=== PATIENT | male | born 1970 | race Hispanic/Latino ===

== ENCOUNTER 2022-03-14 14:39 | Inpatient (IN) | payer OTHER ==
[2022-03-14] VITALS (7 sets, daily range): BP systolic 99–118; BP diastolic 60–77
[~2022-03-14] VITALS: Ht 170.2 cm; Wt 59.9 kg
[2022-03-14 15:19] LABS: BASOPHILS % (AUTO) 0.4 % (0.0-5.0); EOSINOPHILS % (AUTO) 1.6 % (0.0-8.0); HEMATOCRIT 42.3 % (42-54); LYMPHOCYTES % (AUTO) 4.6 % (21.0-51.0); MEAN CORPUSCULAR HEMOGLOBIN 30.1 pg (27.0-33.0); MEAN CORPUSCULAR HGB CONC 33.1 g/dL (32.0-36.0); MONOCYTES % (AUTO) 7.9 % (3.0-13.0); NEUTROPHILS % (AUTO) 73.9 % (40.0-77.0); PLATELET COUNT (AUTO) 139 K/uL (130-400); RED BLOOD CELL COUNT(AUTO) 4.65 MIL/uL (4.50-6.20)
[2022-03-14] MEDS ORDERED: 0.9%NACL 1000ML 1,000 ML IV ONE ×2 (15:30→17:00)
[2022-03-14 15:33] LABS: ABG BASE EXCESS -17.7 mmol/L (-2.0-3.0); ABG HCO3 7.2 mmol/L (21.0-28.0); ABG OXYGEN SATURATION 97.8 % (95.0-99.0); ABG PCO2 17 mmHg (35-48)
[2022-03-14 15:50] LABS: ALBUMIN 2.3 g/dL (3.5-5.0); CREATININE 1.5 mg/dL (0.5-1.5); POTASSIUM 3.7 mmol/L (3.5-5.1); TOTAL PROTEIN, SERUM 7.2 g/dL (6.0-8.3)
[2022-03-14 16:00] LABS: MAGNESIUM 2.7 mg/dL (1.80-2.40)
[2022-03-14] MEDS ORDERED: GLYB3TAB PO (16:05)
[2022-03-14 16:17] LABS: APPEARANCE,URINE Clear (CLEAR); BILIRUBIN,URINE Negative (NEGATIVE); COLOR,URINE Yellow (YELLOW); GLUCOSE, URINE (UA) >=1000 mg/dL (NEGATIVE); KETONES,URINE >=160 mg/dL (NEGATIVE); LEUKOCYTE ESTERASE ,URINE Negative (NEGATIVE); NITRATE,URINE Negative (NEGATIVE); OCCULT BLOOD,URINE Large (NEGATIVE); PROTEIN,URINE POS 1+ mg/dL (NEGATIVE); UROBILINOGEN,URINE 0.2 mg/dL (0.2-1.0)
[2022-03-14] MEDS ORDERED: INSULIN HUMULIN R 100 UNIT/ML 3ML IV SCH (16:30)
[2022-03-14 16:33] LABS: BACTERIA,URINE Few /HPF (None Seen); SQUAMOUS EPITHELIAL CELL,UR Rare /HPF (0-2)
[2022-03-14 16:34] LABS: HYALINE CASTS, URINE 0-1 /LPF (0-1 /LPF)
[2022-03-14] MEDS ORDERED: INSULIN REGULAR, HUMAN 3ML 100 UNIT in 0.9%NACL 100ML 99 ML IV PRN ×2 (17:00)
[2022-03-14] MEDS: 0.9%NACL 1000ML 1,000 ML IV SCH ×3 (17:25→23:30)
[2022-03-14] MEDS ORDERED: CLOPIDOGREL 300MG TAB PO ONE (18:30)
[2022-03-14] MEDS ORDERED: 0.9%NACL 1000ML 1,000 ML IV SCH (18:30)
[2022-03-14] MEDS ORDERED: ASPIRIN 325MG TAB PO ONE (18:30)
[2022-03-14] MEDS ORDERED: HEPARIN 25,000 UNITS/250ML D5W 250 ML IV SCH (18:30)
[2022-03-14] MEDS ORDERED: ONDANSETRON 4MG INJ IV PRN (18:30)
[2022-03-14] MEDS ORDERED: ACETAMINOPHEN 325 MG TAB PO PRN (18:30)
[2022-03-14 19:18] LABS: APPEARANCE,URINE Clear (CLEAR); BILIRUBIN,URINE Negative (NEGATIVE); COLOR,URINE Yellow (YELLOW); GLUCOSE, URINE (UA) >=1000 mg/dL (NEGATIVE); KETONES,URINE >=160 mg/dL (NEGATIVE); LEUKOCYTE ESTERASE ,URINE Negative (NEGATIVE); NITRATE,URINE Negative (NEGATIVE); OCCULT BLOOD,URINE Large (NEGATIVE); PROTEIN,URINE POS 1+ mg/dL (NEGATIVE); UROBILINOGEN,URINE 0.2 mg/dL (0.2-1.0)
[2022-03-14 19:22] LABS: PROTEIN,URINE RANDOM 60.5 mg/dL (0-11.9)
[2022-03-14 19:40] LABS: BACTERIA,URINE Few /HPF (None Seen)
[2022-03-14 19:41] LABS: HYALINE CASTS, URINE 0-1 /LPF (0-1 /LPF); SQUAMOUS EPITHELIAL CELL,UR Rare /HPF (0-2)
[2022-03-14 19:55] LABS: INR 1.07 (0.85-1.15); PROTHROMBIN TIME 11.6 SEC (9.6-11.6)
[2022-03-14 19:57] LABS: PARTIAL THROMBOPLASTIN TIME 35.9 SEC (26.3-35.5)
[2022-03-14] MEDS: DEXTROSE 5 %-0.45 % NACL 1,000 ML IV PRN (20:01)
[2022-03-14 20:05] LABS: CREATININE 1.3 mg/dL (0.5-1.5); MAGNESIUM 2.4 mg/dL (1.80-2.40)
[2022-03-14 20:12] LABS: POTASSIUM 2.8 mmol/L (3.5-5.1)
[2022-03-14 20:19] LABS: THYROID STIMULATING HORMONE 0.6 uIU/mL (0.36-3.74)
[2022-03-14] MEDS ORDERED: HEPARIN 5,000 UNIT VIAL ONE (20:20)
[2022-03-14 20:46] LABS: CRP QUANTITATIVE 356.7 mg/L (0.00-9.0)
[2022-03-14] MEDS ORDERED: MAGNESIUM 2GM PREMIX 50ML 50 ML IV PRN (21:30)
[2022-03-14 21:56] LABS: ABG BASE EXCESS -13.3 mmol/L (-2.0-3.0); ABG HCO3 10.8 mmol/L (21.0-28.0); ABG OXYGEN SATURATION 97.2 % (95.0-99.0); ABG PCO2 22 mmHg (35-48)
[2022-03-14 21:56] LABS: AMPHET/METH SCREEN,URINE NEGATIVE (NEGATIVE); BARBITURATE SCREEN, URINE NEGATIVE (NEGATIVE); BENZODIAZEPINES SCREEN,URINE NEGATIVE (NEGATIVE); CANNABINOID SCREEN,URINE NEGATIVE (NEGATIVE); COCAINE SCREEN,URINE NEGATIVE (NEGATIVE); OPIATE SCREEN,URINE NEGATIVE (NEGATIVE); PHENCYCLIDINE SCREEN,URINE NEGATIVE (NEGATIVE)
[2022-03-14] MEDS: PANTOPRAZOLE 40 MG/VIAL IVP SCH (21:58)
[2022-03-14] MEDS: METOPROLOL TARTRATE 25 MG TAB PO SCH (21:58)
[2022-03-14] MEDS: POTASSIUM CHLORIDE 10MEQ/100ML 100 ML IV PRN ×2 (22:05→23:05)
[2022-03-14 22:14] LABS: ABG OXYGEN SATURATION 47.2 % (95.0-99.0); BASE EXCESS,VENOUS BLOOD GAS -14.9 (-2.0-3.0); HCO3,VENOUS BLOOD GAS 10.9 (21.0-28.0); PCO2,VENOUS BLOOD GAS 26 (35-48); PH,VENOUS BLOOD GAS 7.235 (7.350-7.450)
[2022-03-14] MEDS ORDERED: RENAL DOSE IV PRN (22:30)
[2022-03-14] MEDS: ZOSYN 3.375GM +NS 50ML IV SCH (22:30)
[2022-03-15] VITALS (30 sets, daily range): BP systolic 89–151; BP diastolic 54–91
[2022-03-15] MEDS: 0.9%NACL 1000ML 1,000 ML IV SCH ×8 (00:10→20:34)
[2022-03-15 01:19] LABS: BASOPHILS % (AUTO) 0.5 % (0.0-5.0); EOSINOPHILS % (AUTO) 1.7 % (0.0-8.0); HEMATOCRIT 37.7 % (42-54); LYMPHOCYTES % (AUTO) 5.8 % (21.0-51.0); MEAN CORPUSCULAR HEMOGLOBIN 30.3 pg (27.0-33.0); MEAN CORPUSCULAR HGB CONC 34.5 g/dL (32.0-36.0); MEAN CORPUSCULAR VOLUME 87.9 fL (79-99); MONOCYTES % (AUTO) 5.7 % (3.0-13.0); NEUTROPHILS % (AUTO) 80.2 % (40.0-77.0); PLATELET COUNT (AUTO) 97 K/uL (130-400); RED BLOOD CELL COUNT(AUTO) 4.29 MIL/uL (4.50-6.20); RED CELL DISTRIBUTION WIDTH 12.9 % (11.0-15.5); WHITE BLOOD COUNT (AUTO) 14.3 K/uL (4.8-10.8)
[2022-03-15 01:34] LABS: INR 1.03 (0.85-1.15); PROTHROMBIN TIME 11.2 SEC (9.6-11.6)
[2022-03-15 01:35] LABS: PARTIAL THROMBOPLASTIN TIME 88.8 SEC (26.3-35.5)
[2022-03-15 01:57] LABS: CREATININE 1.1 mg/dL (0.5-1.5); MAGNESIUM 2.1 mg/dL (1.80-2.40)
[2022-03-15 02:04] LABS: POTASSIUM 2.9 mmol/L (3.5-5.1)
[2022-03-15] MEDS: LIDOCAINE HCL-MPF 1% 2ML VIAL IV PRN ×4 (02:08→18:12)
[2022-03-15] MEDS: POTASSIUM CHLORIDE 20MEQ/100ML 100 ML IV PRN ×5 (02:09→22:20)
[2022-03-15 02:52] LABS: ABG OXYGEN SATURATION 63.8 % (95.0-99.0); BASE EXCESS,VENOUS BLOOD GAS -10.7 (-2.0-3.0); HCO3,VENOUS BLOOD GAS 13.3 (21.0-28.0); PCO2,VENOUS BLOOD GAS 26 (35-48); PH,VENOUS BLOOD GAS 7.331 (7.350-7.450)
[2022-03-15] MEDS: DEXTROSE 5 %-0.45 % NACL 1,000 ML IV PRN (02:58)
[2022-03-15] MEDS: MORPHINE 2 MG SYG IVP PRN (03:21)
[2022-03-15] MEDS ORDERED: VANCOMYCIN KIT 1 GM/250 ML IV.KIT IV SCH (03:30)
[2022-03-15 06:03] LABS: MAGNESIUM 2.2 mg/dL (1.80-2.40); PHOSPHORUS 1.4 mg/dL (2.5-4.9); POTASSIUM 4.4 mmol/L (3.5-5.1)
[2022-03-15] MEDS: ZOSYN 3.375GM +NS 50ML IV SCH ×3 (06:37→21:38)
[2022-03-15 08:36] LABS: POTASSIUM 3.2 mmol/L (3.5-5.1)
[2022-03-15] MEDS ORDERED: SOD PHOSPHATE 45 MMOL/15 ML VI 15 MMOL in 0.9% NACL 250ML 250 ML IV PRN (09:00)
[2022-03-15] MEDS: PANTOPRAZOLE 40 MG/VIAL IVP SCH ×2 (09:10→20:35)
[2022-03-15] MEDS: VANCOMYCIN 1G/250ML KIT 250 ML IV SCH ×2 (09:10→20:45)
[2022-03-15] MEDS: METOPROLOL TARTRATE 25 MG TAB PO SCH ×3 (09:10→20:45)
[2022-03-15] MEDS: ASPIRIN 81 MG EC TAB PO SCH (09:10)
[2022-03-15] MEDS: CLOPIDOGREL 75MG TAB PO SCH (09:11)
[2022-03-15] MEDS: D5W-1/2 NS/20MEQ KCL 1,000 ML IV SCH ×3 (09:23→21:38)
[2022-03-15 12:48] LABS: ABG BASE EXCESS -8.4 mmol/L (-2.0-3.0); ABG HCO3 14.6 mmol/L (21.0-28.0); ABG OXYGEN SATURATION 97.7 % (95.0-99.0); ABG PCO2 24 mmHg (35-48)
[2022-03-15 13:15] LABS: CREATININE 0.9 mg/dL (0.5-1.5)
[2022-03-15 13:26] LABS: POTASSIUM 2.9 mmol/L (3.5-5.1)
[2022-03-15] MEDS: INSULIN REGULAR, HUMAN 3ML 100 UNIT in 0.9%NACL 100ML 99 ML IV PRN ×2 (15:11)
[2022-03-15 17:16] LABS: CREATININE 0.8 mg/dL (0.5-1.5); POTASSIUM 3.1 mmol/L (3.5-5.1)
[2022-03-15] MEDS ORDERED: LORAZEPAM 2 MG/ML 1 ML VIAL ONE (20:29)
[2022-03-15] MEDS ORDERED: LORAZEPAM 2 MG/ML 1 ML VIAL IVP ONE (20:30)
[2022-03-15] MEDS: ZOLPIDEM TARTRATE 5 MG TAB PO SCH (21:00)
[2022-03-15] MEDS ORDERED: LABETALOL 20MG VIAL IV PRN (21:00)
[2022-03-15] MEDS ORDERED: HYDRALAZINE HCL 10 MG TABLET PO PRN (21:00)
[2022-03-15] MEDS ORDERED: LABETALOL 20MG SYG IV PRN (21:30)
[2022-03-15] MEDS ORDERED: LORAZEPAM 2 MG/ML 1 ML VIAL IM PRN ×2 (22:00)
[2022-03-15 22:10] LABS: CREATININE 0.8 mg/dL (0.5-1.5); MAGNESIUM 2.1 mg/dL (1.80-2.40); PHOSPHORUS 0.8 mg/dL (2.5-4.9)
[2022-03-15 22:11] LABS: POTASSIUM 2.8 mmol/L (3.5-5.1)
[2022-03-16] VITALS (26 sets, daily range): BP systolic 123–171; BP diastolic 54–107
[2022-03-16] MEDS: 0.9%NACL 1000ML 1,000 ML IV SCH ×7 (00:30→19:57)
[2022-03-16] MEDS: POTASSIUM CHLORIDE 20MEQ/100ML 100 ML IV PRN ×4 (04:48→15:21)
[2022-03-16] MEDS ORDERED: PHARMACY COMMUNICATION MISC SCH ×2 (06:00→13:30)
[2022-03-16] MEDS: ZOSYN 3.375GM +NS 50ML IV SCH ×2 (06:04→14:05)
[2022-03-16 06:29] LABS: BASOPHILS % (AUTO) 0.6 % (0.0-5.0); EOSINOPHILS % (AUTO) 0.2 % (0.0-8.0); HEMATOCRIT 38.8 % (42-54); LYMPHOCYTES % (AUTO) 6.7 % (21.0-51.0); MEAN CORPUSCULAR HGB CONC 35.1 g/dL (32.0-36.0); MEAN CORPUSCULAR VOLUME 85.5 fL (79-99); MONOCYTES % (AUTO) 6.6 % (3.0-13.0); NEUTROPHILS % (AUTO) 84.2 % (40.0-77.0); RED BLOOD CELL COUNT(AUTO) 4.54 MIL/uL (4.50-6.20); RED CELL DISTRIBUTION WIDTH 13.2 % (11.0-15.5); WHITE BLOOD COUNT (AUTO) 13.9 K/uL (4.8-10.8)
[2022-03-16 06:31] LABS: PLATELET COUNT (AUTO) 48 K/uL (130-400)
[2022-03-16 06:40] LABS: ALBUMIN 1.6 g/dL (3.5-5.0); CREATININE 0.9 mg/dL (0.5-1.5); MAGNESIUM 2.4 mg/dL (1.80-2.40); PHOSPHORUS 1.3 mg/dL (2.5-4.9); POTASSIUM 3.1 mmol/L (3.5-5.1); TOTAL PROTEIN, SERUM 5.9 g/dL (6.0-8.3)
[2022-03-16] MEDS ORDERED: ARGATROBAN 250 MG/2.5 ML VIAL 250 MG in 0.9% NACL 250ML 250 ML IV SCH (06:44)
[2022-03-16] MEDS: M.V.I. IV [ADULT] 10 ML, FOLIC ACID 1 MG, THIAMINE HCL 100 MG in 0.9%NACL 1000ML 1,000 ML IV SCH (07:23)
[2022-03-16] MEDS ORDERED: INSULIN GLARGINE 100 UNITS/ML 10 ML VIAL SQ SCH (08:30)
[2022-03-16] MEDS ORDERED: POTASSIUM PHOS 15 mMOL+NS250ML 250 ML IV PRN (08:30)
[2022-03-16] MEDS: D5W-1/2 NS/20MEQ KCL 1,000 ML IV SCH ×2 (08:37→11:40)
[2022-03-16] MEDS: CLOPIDOGREL 75MG TAB PO SCH (09:00)
[2022-03-16] MEDS: VANCOMYCIN 1G/250ML KIT 250 ML IV SCH ×2 (09:16→22:02)
[2022-03-16] MEDS: PANTOPRAZOLE 40 MG/VIAL IVP SCH ×2 (09:19→21:11)
[2022-03-16] MEDS: ASPIRIN 81 MG EC TAB PO SCH (09:19)
[2022-03-16] MEDS: THIAMINE HCL 100 MG/ML 2ML VIAL IVP SCH (09:19)
[2022-03-16] MEDS: METOPROLOL TARTRATE 25 MG TAB PO SCH ×3 (09:20→21:20)
[2022-03-16 09:23] LABS: CREATININE 0.7 mg/dL (0.5-1.5); POTASSIUM 3.3 mmol/L (3.5-5.1)
[2022-03-16] MEDS ORDERED: IOHEXOL 350 MG/ML 100ML INFUS..BTL IV ONE (09:52)
[2022-03-16 12:13] LABS: CREATININE 0.7 mg/dL (0.5-1.5)
[2022-03-16 12:22] LABS: POTASSIUM 2.8 mmol/L (3.5-5.1)
[2022-03-16] MEDS: LIDOCAINE HCL-MPF 1% 2ML VIAL IV PRN (13:01)
[2022-03-16] MEDS ORDERED: POTASSIUM CHLORIDE IV SCH (14:00)
[2022-03-16] MEDS ORDERED: DEXTROSE IV SCH (14:00)
[2022-03-16] MEDS ORDERED: NACL IV SCH (14:00)
[2022-03-16 16:56] LABS: CREATININE 0.7 mg/dL (0.5-1.5); POTASSIUM 3.4 mmol/L (3.5-5.1)
[2022-03-16 17:30] LABS: CREATINE KINASE, TOTAL 6046 U/L (21-232)
[2022-03-16 17:36] LABS: AMMONIA 15 umol/L (11-32)
[2022-03-16] MEDS ORDERED: SODIUM BICARB 8.4% 50ML SYRING 150 MEQ in DEXTROSE 5%-WATER 1,000 ML IVP SCH (18:00)
[2022-03-16] MEDS ORDERED: CHLORHEXIDINE GLUCONATE 473 ML MOUTHWASH MM SCH (19:30)
[2022-03-16] MEDS: CHLORHEXIDINE GLUCONATE 473 ML MOUTHWASH MM SCH (19:30)
[2022-03-16] MEDS ORDERED: MEROPENEM 1 GM VIAL IVP SCH (19:30)
[2022-03-16] MEDS: ZOLPIDEM TARTRATE 5 MG TAB PO SCH (20:29)
[2022-03-16] MEDS ORDERED: LEVETIRACETAM 500 MG/5 ML SD VIAL IV SCH (21:00)
[2022-03-16] MEDS: LEVETIRACETAM 500 MG in 0.9%NACL 100ML 100 ML IV SCH (21:11)
[2022-03-17] VITALS (28 sets, daily range): BP systolic 107–139; BP diastolic 55–80
[2022-03-17] MEDS: CHLORHEXIDINE GLUCONATE 473 ML MOUTHWASH MM SCH ×4 (01:04→20:49)
[2022-03-17 03:44] LABS: BASOPHILS % (AUTO) 0.2 % (0.0-5.0); HEMATOCRIT 34.5 % (42-54); LYMPHOCYTES % (AUTO) 6.6 % (21.0-51.0); MEAN CORPUSCULAR HEMOGLOBIN 29.6 pg (27.0-33.0); MEAN CORPUSCULAR HGB CONC 33.9 g/dL (32.0-36.0); MEAN CORPUSCULAR VOLUME 87.3 fL (79-99); MONOCYTES % (AUTO) 6.1 % (3.0-13.0); NEUTROPHILS % (AUTO) 85.1 % (40.0-77.0); PLATELET COUNT (AUTO) 44 K/uL (130-400); RED BLOOD CELL COUNT(AUTO) 3.95 MIL/uL (4.50-6.20); RED CELL DISTRIBUTION WIDTH 13.9 % (11.0-15.5); WHITE BLOOD COUNT (AUTO) 14.2 K/uL (4.8-10.8)
[2022-03-17 04:01] LABS: ALBUMIN 1.4 g/dL (3.5-5.0); CREATININE 0.7 mg/dL (0.5-1.5); MAGNESIUM 2.4 mg/dL (1.80-2.40); PHOSPHORUS 2.2 mg/dL (2.5-4.9); POTASSIUM 3.1 mmol/L (3.5-5.1); TOTAL PROTEIN, SERUM 5.3 g/dL (6.0-8.3)
[2022-03-17] MEDS: LEVETIRACETAM 500 MG in 0.9%NACL 100ML 100 ML IV SCH ×3 (05:26→22:24)
[2022-03-17] MEDS: VANCOMYCIN 1G/250ML KIT 250 ML IV SCH (05:27)
[2022-03-17] MEDS: PANTOPRAZOLE 40 MG/VIAL IVP SCH ×2 (08:47→20:48)
[2022-03-17] MEDS: METOPROLOL TARTRATE 25 MG TAB PO SCH ×3 (08:48→20:48)
[2022-03-17] MEDS: TAMSULOSIN HCL 0.4 MG CAP.ER.24H PO SCH (08:48)
[2022-03-17] MEDS: THIAMINE HCL 100 MG/ML 2ML VIAL IVP SCH (08:48)
[2022-03-17] MEDS: 0.9%NACL 1000ML 1,000 ML IV SCH (08:49)
[2022-03-17] MEDS: ATORVASTATIN 40 MG TABLET PO SCH (08:49)
[2022-03-17] MEDS: CEFAZOLIN SODIUM 1 GM VIAL IVP SCH ×2 (08:56→17:07)
[2022-03-17] MEDS ORDERED: THIAMINE HCL 100 MG/ML 2ML VIAL IVP SCH (09:30)
[2022-03-17] MEDS: M.V.I. IV [ADULT] 10 ML, FOLIC ACID 1 MG, THIAMINE HCL 100 MG in 0.9%NACL 1000ML 1,000 ML IV SCH (09:43)
[2022-03-17] MEDS ORDERED: POTASSIUM CHLORIDE 10MEQ/100ML 10 MEQ/100 ML ML IV SCH (10:00)
[2022-03-17] MEDS ORDERED: DEXTROSE 5%-LACTATED RINGERS 1,000 ML IV SCH (10:00)
[2022-03-17 10:05] LABS: INR 1.07 (0.85-1.15); PROTHROMBIN TIME 11.6 SEC (9.6-11.6)
[2022-03-17 10:07] LABS: PARTIAL THROMBOPLASTIN TIME 31.6 SEC (26.3-35.5)
[2022-03-17] MEDS ORDERED: POTASSIUM CHLORIDE 10MEQ/100ML 100 ML IV SCH (10:30)
[2022-03-17] MEDS: KCL 20 MEQ ERTAB PO PRN (10:31)
[2022-03-17] MEDS ORDERED: DEXTROSE 5%-LACTATED RINGERS 1,000 ML IV PRN (11:00)
[2022-03-17] MEDS: INSULIN REGULAR, HUMAN 3ML 100 UNIT in 0.9%NACL 100ML 99 ML IV PRN ×2 (11:01)
[2022-03-17] MEDS: POTASSIUM CHLORIDE 10MEQ/100ML IV PRN (12:25)
[2022-03-17 14:03] LABS: HEMATOCRIT 37.8 % (42-54); MEAN CORPUSCULAR HGB CONC 33.9 g/dL (32.0-36.0); MEAN CORPUSCULAR VOLUME 88.5 fL (79-99); PLATELET COUNT (AUTO) 49 K/uL (130-400); RED BLOOD CELL COUNT(AUTO) 4.27 MIL/uL (4.50-6.20); RED CELL DISTRIBUTION WIDTH 14.4 % (11.0-15.5); WHITE BLOOD COUNT (AUTO) 17.7 K/uL (4.8-10.8)
[2022-03-17 14:33] LABS: CREATININE 0.9 mg/dL (0.5-1.5); POTASSIUM 3.1 mmol/L (3.5-5.1)
[2022-03-17 14:40] LABS: LYMPHOCYTES % (MANUAL) 6 % (22-44); MAN.DIFF COMMENT-IMPRESSION MANUAL DIFFERENTIAL; MONOCYTES % (MANUAL) 6 % (2-9); SEGMENTED NEUTROPHILS % 88 % (40-70)
[2022-03-17 14:41] LABS: PLATELET MORPHOLOGY COMMENT MARKED DECREASE
[2022-03-17] MEDS ORDERED: PHARMACY COMMUNICATION MISC SCH (16:00)
[2022-03-17 16:10] LABS: HEPATITIS A IGM ANTIBODY Non-Reactive (Nonreactive); HEPATITIS B CORE IGM ANTIBODY Non-Reactive (Negative); HEPATITIS B SURFACE ANTIGEN Non-Reactive (Nonreactive); HEPATITIS C ANTIBODY Non-Reactive (Nonreactive)
[2022-03-17] MEDS: ACETAMINOPHEN 325 MG TAB PO PRN (17:08)
[2022-03-17] MEDS: DEXTROSE 5 %-0.45 % NACL 1,000 ML IV SCH ×2 (17:34→22:31)
[2022-03-17] MEDS: GENTAMICIN SULFATE 60 MG in 0.9%NACL 100ML 100 ML IV SCH (18:22)
[2022-03-17 20:18] LABS: CREATININE 0.8 mg/dL (0.5-1.5); MAGNESIUM 2.4 mg/dL (1.80-2.40)
[2022-03-17 20:20] LABS: POTASSIUM 2.9 mmol/L (3.5-5.1)
[2022-03-17] MEDS: POTASSIUM CHLORIDE 20MEQ/100ML 100 ML IV PRN ×2 (20:26→22:41)
[2022-03-17] MEDS: ZOLPIDEM TARTRATE 5 MG TAB PO SCH (21:00)
[2022-03-17] MEDS: LIDOCAINE HCL-MPF 1% 2ML VIAL IV PRN (22:46)
[2022-03-18] VITALS (21 sets, daily range): BP systolic 90–131; BP diastolic 45–78
[2022-03-18] MEDS: CEFAZOLIN SODIUM 1 GM VIAL IVP SCH ×3 (00:10→16:00)
[2022-03-18] MEDS: GENTAMICIN SULFATE 60 MG in 0.9%NACL 100ML 100 ML IV SCH ×3 (01:39→17:05)
[2022-03-18] MEDS: CHLORHEXIDINE GLUCONATE 473 ML MOUTHWASH MM SCH ×4 (01:40→21:03)
[2022-03-18 01:48] LABS: CREATININE 0.8 mg/dL (0.5-1.5)
[2022-03-18 01:53] LABS: MAGNESIUM 2.4 mg/dL (1.80-2.40)
[2022-03-18] MEDS: POTASSIUM CHLORIDE 20MEQ/100ML 100 ML IV PRN (02:14)
[2022-03-18] MEDS: LIDOCAINE HCL-MPF 1% 2ML VIAL IV PRN (02:14)
[2022-03-18 04:14] LABS: BASOPHILS % (AUTO) 0.3 % (0.0-5.0); EOSINOPHILS % (AUTO) 0.1 % (0.0-8.0); HEMATOCRIT 34.7 % (42-54); LYMPHOCYTES % (AUTO) 9.6 % (21.0-51.0); MEAN CORPUSCULAR HEMOGLOBIN 30.1 pg (27.0-33.0); MEAN CORPUSCULAR HGB CONC 34.9 g/dL (32.0-36.0); MEAN CORPUSCULAR VOLUME 86.3 fL (79-99); MONOCYTES % (AUTO) 7.2 % (3.0-13.0); NEUTROPHILS % (AUTO) 80.6 % (40.0-77.0); PLATELET COUNT (AUTO) 55 K/uL (130-400); RED BLOOD CELL COUNT(AUTO) 4.02 MIL/uL (4.50-6.20); RED CELL DISTRIBUTION WIDTH 14.3 % (11.0-15.5); WHITE BLOOD COUNT (AUTO) 17.2 K/uL (4.8-10.8)
[2022-03-18 04:27] LABS: ALBUMIN 1.4 g/dL (3.5-5.0); CREATININE 0.6 mg/dL (0.5-1.5); CRP QUANTITATIVE 118.1 mg/L (0.00-9.0); POTASSIUM 3.3 mmol/L (3.5-5.1); TOTAL PROTEIN, SERUM 4.8 g/dL (6.0-8.3)
[2022-03-18] MEDS: DEXTROSE 5 %-0.45 % NACL 1,000 ML IV SCH ×3 (04:52→21:04)
[2022-03-18] MEDS: POTASSIUM CHLORIDE 10% ELIXIR 20 MEQ/15 ML UDCUP PO PRN (05:02)
[2022-03-18 05:23] LABS: ERYTHROCYTE SEDIMENTATION RATE 40 MM/HR (0-20)
[2022-03-18] MEDS: LEVETIRACETAM 500 MG in 0.9%NACL 100ML 100 ML IV SCH ×3 (05:30→23:13)
[2022-03-18] MEDS ORDERED: INSULIN GLARGINE 100 UNITS/ML 10 ML VIAL SQ SCH (06:30)
[2022-03-18] MEDS: METOPROLOL TARTRATE 25 MG TAB PO SCH ×3 (07:58→21:03)
[2022-03-18] MEDS: PANTOPRAZOLE 40 MG/VIAL IVP SCH ×2 (07:58→21:03)
[2022-03-18] MEDS: THIAMINE HCL 100 MG/ML 2ML VIAL IVP SCH (07:58)
[2022-03-18] MEDS: ATORVASTATIN 40 MG TABLET PO SCH (07:58)
[2022-03-18] MEDS: TAMSULOSIN HCL 0.4 MG CAP.ER.24H PO SCH (07:59)
[2022-03-18] MEDS: INSULIN HUMULIN R 100 UNIT/ML 3ML SQ SCH ×5 (08:01→18:00)
[2022-03-18 10:18] LABS: RAPID PLASMA REAGIN REACTIVE (NONREACTIVE)
[2022-03-18 10:19] LABS: RAPID PLASMA REAGIN TITER REACTIVE 1:4 (NONREACTIVE)
[2022-03-18] MEDS ORDERED: COMPOUND IV REFRIGERATED 1 EACH IVSOLN MISC PRN (12:30)
[2022-03-18] MEDS: KCL 20 MEQ ERTAB PO PRN (14:23)
[2022-03-18] MEDS: POTASSIUM CHLORIDE 10MEQ/100ML IV PRN (14:24)
[2022-03-18] MEDS: ZOLPIDEM TARTRATE 5 MG TAB PO SCH (20:57)
[2022-03-18] MEDS ORDERED: LEVETIRACETAM 500 MG/5 ML SD VIAL IV ONE (22:57)
[2022-03-19] MEDS: CEFAZOLIN SODIUM 1 GM VIAL IVP SCH ×4 (00:21→23:33)
[2022-03-19 01:08] VITALS: BP 133/77
[2022-03-19] MEDS: DEXTROSE 5 %-0.45 % NACL 1,000 ML IV SCH ×3 (01:27→21:24)
[2022-03-19] MEDS: INSULIN HUMULIN R 100 UNIT/ML 3ML SQ SCH ×7 (01:33→17:59)
[2022-03-19] MEDS: GENTAMICIN SULFATE 60 MG in 0.9%NACL 100ML 100 ML IV SCH ×3 (01:36→17:55)
[2022-03-19] MEDS: CHLORHEXIDINE GLUCONATE 473 ML MOUTHWASH MM SCH ×4 (01:36→20:36)
[2022-03-19 04:13] VITALS: BP 128/76
[2022-03-19] MEDS: LEVETIRACETAM 500 MG in 0.9%NACL 100ML 100 ML IV SCH ×3 (06:44→22:22)
[2022-03-19 07:00] VITALS: BP 121/64
[2022-03-19 07:46] LABS: BASOPHILS % (AUTO) 0.2 % (0.0-5.0); EOSINOPHILS % (AUTO) 0.2 % (0.0-8.0); HEMATOCRIT 33.4 % (42-54); LYMPHOCYTES % (AUTO) 10.9 % (21.0-51.0); MEAN CORPUSCULAR HEMOGLOBIN 29.8 pg (27.0-33.0); MEAN CORPUSCULAR HGB CONC 34.7 g/dL (32.0-36.0); MEAN CORPUSCULAR VOLUME 85.9 fL (79-99); MONOCYTES % (AUTO) 5.9 % (3.0-13.0); NEUTROPHILS % (AUTO) 80.6 % (40.0-77.0); PLATELET COUNT (AUTO) 61 K/uL (130-400); RED BLOOD CELL COUNT(AUTO) 3.89 MIL/uL (4.50-6.20); RED CELL DISTRIBUTION WIDTH 14.3 % (11.0-15.5); WHITE BLOOD COUNT (AUTO) 16.4 K/uL (4.8-10.8)
[2022-03-19 08:08] LABS: ALANINE AMINOTRANSFERASE 73 U/L (12-78); ALBUMIN 1.4 g/dL (3.5-5.0); ASPARTATE AMINOTRANSFERASE 75 U/L (10-37); CARBON DIOXIDE 23 mmol/L (21-32); CHLORIDE 110 mmol/L (101-111); CREATININE 0.7 mg/dL (0.5-1.5); GLOMERULAR FILTR. RATE CALC 126 mL/min (>60); GLUCOSE,RANDOM 210 mg/dL (70-105); POTASSIUM 3.1 mmol/L (3.5-5.1); SODIUM SERUM 143 mmol/L (136-145); TOTAL PROTEIN, SERUM 5.1 g/dL (6.0-8.3); UREA NITROGEN, BLOOD 13 mg/dL (7-18)
[2022-03-19] MEDS: ATORVASTATIN 40 MG TABLET PO SCH (09:18)
[2022-03-19] MEDS: METOPROLOL TARTRATE 25 MG TAB PO SCH ×3 (09:21→20:36)
[2022-03-19] MEDS: TAMSULOSIN HCL 0.4 MG CAP.ER.24H PO SCH (09:21)
[2022-03-19] MEDS: PANTOPRAZOLE 40 MG/VIAL IVP SCH ×2 (09:28→20:36)
[2022-03-19] MEDS: THIAMINE HCL 100 MG/ML 2ML VIAL IVP SCH (09:28)
[2022-03-19 12:06] VITALS: BP 106/52
[2022-03-19] MEDS ORDERED: COMPOUND IV MISC 1 EACH IVSOLN MISC PRN (12:30)
[2022-03-19 16:00] VITALS: BP 106/43
[2022-03-19 20:36] VITALS: BP 121/72
[2022-03-19] MEDS: ZOLPIDEM TARTRATE 5 MG TAB PO SCH (21:00)
[2022-03-19] MEDS: KCL 20 MEQ ERTAB PO PRN (23:33)
[2022-03-19] MEDS: LIDOCAINE HCL-MPF 1% 2ML VIAL IV PRN (23:38)
[2022-03-19] MEDS: POTASSIUM CHLORIDE 20MEQ/100ML 100 ML IV PRN (23:38)
[2022-03-20 00:04] VITALS: BP 133/74
[2022-03-20] MEDS: GENTAMICIN SULFATE 60 MG in 0.9%NACL 100ML 100 ML IV SCH ×3 (01:07→17:12)
[2022-03-20] MEDS: CHLORHEXIDINE GLUCONATE 473 ML MOUTHWASH MM SCH ×4 (01:10→20:51)
[2022-03-20] MEDS: MORPHINE 2 MG SYG IVP PRN (04:01)
[2022-03-20 04:34] VITALS: BP 128/76
[2022-03-20 04:56] LABS: BASOPHILS % (AUTO) 0.2 % (0.0-5.0); EOSINOPHILS % (AUTO) 0.1 % (0.0-8.0); HEMATOCRIT 31.3 % (42-54); LYMPHOCYTES % (AUTO) 10.9 % (21.0-51.0); MEAN CORPUSCULAR HEMOGLOBIN 29.4 pg (27.0-33.0); MEAN CORPUSCULAR HGB CONC 34.2 g/dL (32.0-36.0); MONOCYTES % (AUTO) 4.6 % (3.0-13.0); NEUTROPHILS % (AUTO) 82.4 % (40.0-77.0); PLATELET COUNT (AUTO) 83 K/uL (130-400); RED BLOOD CELL COUNT(AUTO) 3.64 MIL/uL (4.50-6.20); WHITE BLOOD COUNT (AUTO) 14.8 K/uL (4.8-10.8)
[2022-03-20 05:13] LABS: CREATININE 0.6 mg/dL (0.5-1.5)
[2022-03-20] MEDS: INSULIN HUMULIN R 100 UNIT/ML 3ML SQ SCH ×8 (05:16→17:13)
[2022-03-20] MEDS: KCL 20 MEQ ERTAB PO PRN ×4 (05:41→17:14)
[2022-03-20] MEDS: POTASSIUM CHLORIDE 20MEQ/100ML 100 ML IV PRN (05:41)
[2022-03-20] MEDS: LEVETIRACETAM 500 MG in 0.9%NACL 100ML 100 ML IV SCH ×3 (05:42→22:51)
[2022-03-20 07:00] VITALS: BP 122/73
[2022-03-20] MEDS: PANTOPRAZOLE 40 MG/VIAL IVP SCH ×2 (08:51→20:50)
[2022-03-20] MEDS: CEFAZOLIN SODIUM 1 GM VIAL IVP SCH ×2 (08:51→16:58)
[2022-03-20] MEDS: ATORVASTATIN 40 MG TABLET PO SCH (08:51)
[2022-03-20] MEDS: THIAMINE HCL 100 MG/ML 2ML VIAL IVP SCH (08:51)
[2022-03-20] MEDS: TAMSULOSIN HCL 0.4 MG CAP.ER.24H PO SCH (08:52)
[2022-03-20] MEDS: METOPROLOL TARTRATE 25 MG TAB PO SCH ×3 (08:52→20:50)
[2022-03-20] MEDS: INSULIN GLARGINE 100 UNITS/ML 10 ML VIAL SQ SCH (09:05)
[2022-03-20] MEDS: ACETAMINOPHEN 325 MG TAB PO PRN (09:17)
[2022-03-20 12:02] VITALS: BP 95/57
[2022-03-20] MEDS: DEXTROSE 5 %-0.45 % NACL 1,000 ML IV SCH (12:18)
[2022-03-20] MEDS ORDERED: COMPOUND IV REFRIGERATED 1 EACH IVSOLN MISC PRN (14:00)
[2022-03-20 16:00] VITALS: BP 124/73
[2022-03-20 20:10] VITALS: BP 122/66
[2022-03-20] MEDS: ZOLPIDEM TARTRATE 5 MG TAB PO SCH (20:50)
[2022-03-21] VITALS (7 sets, daily range): BP systolic 111–126; BP diastolic 63–75
[2022-03-21] MEDS: CEFAZOLIN SODIUM 1 GM VIAL IVP SCH ×3 (00:15→16:16)
[2022-03-21] MEDS: GENTAMICIN SULFATE 60 MG in 0.9%NACL 100ML 100 ML IV SCH ×3 (01:41→17:30)
[2022-03-21] MEDS: CHLORHEXIDINE GLUCONATE 473 ML MOUTHWASH MM SCH ×4 (01:42→22:29)
[2022-03-21 05:21] LABS: HEMATOCRIT 28.2 % (42-54); MEAN CORPUSCULAR HEMOGLOBIN 29.9 pg (27.0-33.0); MEAN CORPUSCULAR HGB CONC 34.8 g/dL (32.0-36.0); RED BLOOD CELL COUNT(AUTO) 3.28 MIL/uL (4.50-6.20); RED CELL DISTRIBUTION WIDTH 14.1 % (11.0-15.5); WHITE BLOOD COUNT (AUTO) 16.3 K/uL (4.8-10.8)
[2022-03-21 05:34] LABS: CREATININE 0.7 mg/dL (0.5-1.5); MAGNESIUM 2.1 mg/dL (1.80-2.40); POTASSIUM 3.4 mmol/L (3.5-5.1)
[2022-03-21] MEDS: DEXTROSE 5 %-0.45 % NACL 1,000 ML IV SCH (05:48)
[2022-03-21] MEDS: LEVETIRACETAM 500 MG in 0.9%NACL 100ML 100 ML IV SCH ×3 (05:49→22:18)
[2022-03-21] MEDS: INSULIN HUMULIN R 100 UNIT/ML 3ML SQ SCH ×7 (06:09→17:49)
[2022-03-21] MEDS: INSULIN GLARGINE 100 UNITS/ML 10 ML VIAL SQ SCH (06:10)
[2022-03-21] MEDS ORDERED: INSULIN GLARGINE 100 UNITS/ML 10 ML VIAL SQ SCH (07:00)
[2022-03-21] MEDS: METOPROLOL TARTRATE 25 MG TAB PO SCH ×3 (08:43→22:18)
[2022-03-21] MEDS: TAMSULOSIN HCL 0.4 MG CAP.ER.24H PO SCH (08:43)
[2022-03-21] MEDS: PANTOPRAZOLE 40 MG/VIAL IVP SCH ×2 (08:43→22:18)
[2022-03-21] MEDS: THIAMINE HCL 100 MG/ML 2ML VIAL IVP SCH (08:43)
[2022-03-21] MEDS: KCL 20 MEQ ERTAB PO PRN (11:51)
[2022-03-21] MEDS: ATORVASTATIN 40 MG TABLET PO SCH (22:17)
[2022-03-21] MEDS: ZOLPIDEM TARTRATE 5 MG TAB PO SCH (22:17)
[2022-03-22] VITALS (13 sets, daily range): BP systolic 83–107; BP diastolic 49–86
[2022-03-22] MEDS: CEFAZOLIN SODIUM 1 GM VIAL IVP SCH ×2 (00:54→09:25)
[2022-03-22] MEDS: GENTAMICIN SULFATE 60 MG in 0.9%NACL 100ML 100 ML IV SCH ×3 (01:55→18:21)
[2022-03-22] MEDS: CHLORHEXIDINE GLUCONATE 473 ML MOUTHWASH MM SCH ×4 (02:01→19:54)
[2022-03-22 05:37] LABS: HEMATOCRIT 27.7 % (42-54); MEAN CORPUSCULAR HEMOGLOBIN 29.8 pg (27.0-33.0); MEAN CORPUSCULAR HGB CONC 34.3 g/dL (32.0-36.0); MEAN CORPUSCULAR VOLUME 86.8 fL (79-99); RED BLOOD CELL COUNT(AUTO) 3.19 MIL/uL (4.50-6.20); RED CELL DISTRIBUTION WIDTH 13.9 % (11.0-15.5); WHITE BLOOD COUNT (AUTO) 16.8 K/uL (4.8-10.8)
[2022-03-22] MEDS: INSULIN HUMULIN R 100 UNIT/ML 3ML SQ SCH ×7 (06:00→18:06)
[2022-03-22] MEDS: DEXTROSE 5 %-0.45 % NACL 1,000 ML IV SCH (06:06)
[2022-03-22 06:13] LABS: CREATININE 0.8 mg/dL (0.5-1.5); POTASSIUM 3.3 mmol/L (3.5-5.1)
[2022-03-22] MEDS: LEVETIRACETAM 500 MG in 0.9%NACL 100ML 100 ML IV SCH ×3 (06:49→22:06)
[2022-03-22] MEDS: INSULIN GLARGINE 100 UNITS/ML 10 ML VIAL SQ SCH (07:00)
[2022-03-22] MEDS: TAMSULOSIN HCL 0.4 MG CAP.ER.24H PO SCH (09:00)
[2022-03-22] MEDS: PANTOPRAZOLE 40 MG/VIAL IVP SCH ×2 (09:26→21:05)
[2022-03-22] MEDS: THIAMINE HCL 100 MG/ML 2ML VIAL IVP SCH (09:27)
[2022-03-22] MEDS: METOPROLOL TARTRATE 25 MG TAB PO SCH ×3 (09:29→21:06)
[2022-03-22] MEDS ORDERED: LIDOCAINE HCL 2% VISCOUS 15 ML UDCUP ONE (12:10)
[2022-03-22] MEDS ORDERED: FENTANYL CITRATE PF 50 MCG/1 ML 2ML VIAL ONE (12:12)
[2022-03-22] MEDS ORDERED: MIDAZOLAM HCL 1 MG/ML 2ML VIAL ONE (12:13)
[2022-03-22] MEDS: NAFCILLIN 2GM+ NS 100ML 100 ML IV SCH ×3 (13:55→21:06)
[2022-03-22] MEDS: POTASSIUM CHLORIDE 10MEQ/100ML IV PRN (14:16)
[2022-03-22] MEDS: ATORVASTATIN 40 MG TABLET PO SCH (21:05)
[2022-03-22] MEDS: ZOLPIDEM TARTRATE 5 MG TAB PO SCH (21:06)
[2022-03-23] MEDS: NAFCILLIN 2GM+ NS 100ML 100 ML IV SCH ×5 (00:26→21:18)
[2022-03-23] MEDS: INSULIN HUMULIN R 100 UNIT/ML 3ML SQ SCH ×6 (00:48→18:04)
[2022-03-23] MEDS: GENTAMICIN SULFATE 60 MG in 0.9%NACL 100ML 100 ML IV SCH ×3 (02:22→17:39)
[2022-03-23] MEDS: CHLORHEXIDINE GLUCONATE 473 ML MOUTHWASH MM SCH ×4 (02:22→21:25)
[2022-03-23 03:48] VITALS: BP 106/66
[2022-03-23] MEDS: LEVETIRACETAM 500 MG in 0.9%NACL 100ML 100 ML IV SCH ×3 (05:46→23:04)
[2022-03-23 08:00] VITALS: BP 88/58
[2022-03-23 08:13] LABS: BASOPHILS % (AUTO) 0.1 % (0.0-5.0); EOSINOPHILS % (AUTO) 0.2 % (0.0-8.0); HEMATOCRIT 30.4 % (42-54); LYMPHOCYTES % (AUTO) 8.5 % (21.0-51.0); MEAN CORPUSCULAR HEMOGLOBIN 29.7 pg (27.0-33.0); MEAN CORPUSCULAR HGB CONC 33.9 g/dL (32.0-36.0); MEAN CORPUSCULAR VOLUME 87.6 fL (79-99); MONOCYTES % (AUTO) 5.6 % (3.0-13.0); NEUTROPHILS % (AUTO) 84.7 % (40.0-77.0); PLATELET COUNT (AUTO) 196 K/uL (130-400); RED BLOOD CELL COUNT(AUTO) 3.47 MIL/uL (4.50-6.20); RED CELL DISTRIBUTION WIDTH 13.9 % (11.0-15.5); WHITE BLOOD COUNT (AUTO) 18.8 K/uL (4.8-10.8)
[2022-03-23 08:32] LABS: POTASSIUM 3.2 mmol/L (3.5-5.1)
[2022-03-23] MEDS: DEXTROSE 5 %-0.45 % NACL 1,000 ML IV SCH (11:33)
[2022-03-23] MEDS: THIAMINE HCL 100 MG/ML 2ML VIAL IVP SCH (11:34)
[2022-03-23] MEDS: TAMSULOSIN HCL 0.4 MG CAP.ER.24H PO SCH (11:34)
[2022-03-23] MEDS: PANTOPRAZOLE 40 MG/VIAL IVP SCH ×2 (11:34→21:22)
[2022-03-23] MEDS: METOPROLOL TARTRATE 25 MG TAB PO SCH ×4 (11:34→21:26)
[2022-03-23] MEDS: INSULIN GLARGINE 100 UNITS/ML 10 ML VIAL SQ SCH (11:38)
[2022-03-23 12:00] VITALS: BP 105/63
[2022-03-23 16:00] VITALS: BP 87/57
[2022-03-23] MEDS: KCL 20 MEQ ERTAB PO PRN (19:18)
[2022-03-23] MEDS: ATORVASTATIN 40 MG TABLET PO SCH (21:25)
[2022-03-23 21:26] VITALS: BP 98/58
[2022-03-23] MEDS: ZOLPIDEM TARTRATE 5 MG TAB PO SCH (21:26)
[2022-03-23 23:52] VITALS: BP 107/66
[2022-03-24] MEDS: NAFCILLIN 2GM+ NS 100ML 100 ML IV SCH ×6 (02:12→20:20)
[2022-03-24] MEDS: GENTAMICIN SULFATE 60 MG in 0.9%NACL 100ML 100 ML IV SCH ×3 (02:13→18:44)
[2022-03-24] MEDS: INSULIN HUMULIN R 100 UNIT/ML 3ML SQ SCH ×7 (02:14→18:21)
[2022-03-24] MEDS: CHLORHEXIDINE GLUCONATE 473 ML MOUTHWASH MM SCH ×4 (02:18→20:20)
[2022-03-24 04:23] LABS: ABG BASE EXCESS 1.2 mmol/L (-2.0-3.0); ABG HCO3 23.7 mmol/L (21.0-28.0); ABG OXYGEN SATURATION 89.2 % (95.0-99.0); ABG PCO2 32 mmHg (35-48)
[2022-03-24 04:47] VITALS: BP 98/51
[2022-03-24 05:13] LABS: BASOPHILS % (AUTO) 0.1 % (0.0-5.0); EOSINOPHILS % (AUTO) 0.5 % (0.0-8.0); LYMPHOCYTES % (AUTO) 9.6 % (21.0-51.0); MEAN CORPUSCULAR HEMOGLOBIN 29.7 pg (27.0-33.0); MEAN CORPUSCULAR HGB CONC 33.1 g/dL (32.0-36.0); MEAN CORPUSCULAR VOLUME 89.8 fL (79-99); MONOCYTES % (AUTO) 5.1 % (3.0-13.0); NEUTROPHILS % (AUTO) 84.1 % (40.0-77.0); PLATELET COUNT (AUTO) 265 K/uL (130-400); RED BLOOD CELL COUNT(AUTO) 3.23 MIL/uL (4.50-6.20); RED CELL DISTRIBUTION WIDTH 14.2 % (11.0-15.5); WHITE BLOOD COUNT (AUTO) 15.4 K/uL (4.8-10.8)
[2022-03-24] MEDS: LEVETIRACETAM 500 MG in 0.9%NACL 100ML 100 ML IV SCH ×2 (05:20→14:00)
[2022-03-24 05:24] LABS: MAGNESIUM 2.4 mg/dL (1.80-2.40); POTASSIUM 3.4 mmol/L (3.5-5.1)
[2022-03-24] MEDS: INSULIN GLARGINE 100 UNITS/ML 10 ML VIAL SQ SCH (06:15)
[2022-03-24 08:00] VITALS: BP 99/63
[2022-03-24 09:28] LABS: INR 1.06 (0.85-1.15); PROTHROMBIN TIME 11.5 SEC (9.6-11.6)
[2022-03-24 09:29] LABS: PARTIAL THROMBOPLASTIN TIME 34.1 SEC (26.3-35.5)
[2022-03-24] MEDS: THIAMINE HCL 100 MG/ML 2ML VIAL IVP SCH (11:16)
[2022-03-24] MEDS: PANTOPRAZOLE 40 MG/VIAL IVP SCH ×2 (11:16→20:21)
[2022-03-24] MEDS: TAMSULOSIN HCL 0.4 MG CAP.ER.24H PO SCH (11:16)
[2022-03-24] MEDS: METOPROLOL TARTRATE 25 MG TAB PO SCH ×3 (11:17→20:29)
[2022-03-24 12:00] VITALS: BP 98/59
[2022-03-24 16:00] VITALS: BP 101/54
[2022-03-24] MEDS: ZOLPIDEM TARTRATE 5 MG TAB PO SCH (20:22)
[2022-03-24] MEDS: ATORVASTATIN 40 MG TABLET PO SCH (20:23)
[2022-03-24 20:40] VITALS: BP 136/74
[2022-03-25] MEDS: INSULIN HUMULIN R 100 UNIT/ML 3ML SQ SCH ×7 (00:01→18:00)
[2022-03-25 00:13] VITALS: BP 104/64
[2022-03-25] MEDS: NAFCILLIN 2GM+ NS 100ML 100 ML IV SCH ×6 (00:14→21:52)
[2022-03-25] MEDS: ACETAMINOPHEN 325 MG TAB PO PRN (00:36)
[2022-03-25] MEDS: CHLORHEXIDINE GLUCONATE 473 ML MOUTHWASH MM SCH ×4 (01:43→22:54)
[2022-03-25] MEDS: GENTAMICIN SULFATE 60 MG in 0.9%NACL 100ML 100 ML IV SCH ×3 (01:44→16:40)
[2022-03-25 04:26] VITALS: BP 96/58
[2022-03-25 05:27] LABS: CREATININE 0.8 mg/dL (0.5-1.5); TOTAL PROTEIN, SERUM 5.7 g/dL (6.0-8.3)
[2022-03-25 05:28] LABS: POTASSIUM 2.9 mmol/L (3.5-5.1)
[2022-03-25] MEDS: POTASSIUM CHLORIDE 10% ELIXIR 20 MEQ/15 ML UDCUP PO PRN (05:37)
[2022-03-25] MEDS: INSULIN GLARGINE 100 UNITS/ML 10 ML VIAL SQ SCH (06:37)
[2022-03-25 07:10] VITALS: BP 105/68
[2022-03-25] MEDS: LEVETIRACETAM 500 MG in 0.9%NACL 100ML 100 ML IV SCH ×5 (07:45→21:53)
[2022-03-25] MEDS: PANTOPRAZOLE 40 MG/VIAL IVP SCH ×2 (10:06→21:53)
[2022-03-25] MEDS: KCL 20 MEQ ERTAB PO PRN ×5 (10:06→16:48)
[2022-03-25] MEDS: THIAMINE HCL 100 MG/ML 2ML VIAL IVP SCH (10:07)
[2022-03-25] MEDS: METOPROLOL TARTRATE 25 MG TAB PO SCH ×3 (10:09→21:52)
[2022-03-25] MEDS: TAMSULOSIN HCL 0.4 MG CAP.ER.24H PO SCH (10:13)
[2022-03-25] MEDS: POTASSIUM CHLORIDE 20MEQ/100ML 100 ML IV PRN (10:34)
[2022-03-25] MEDS: LIDOCAINE HCL-MPF 1% 2ML VIAL IV PRN (10:34)
[2022-03-25 11:10] VITALS: BP 99/64
[2022-03-25 13:29] LABS: HEMATOCRIT 33.2 % (42-54); MEAN CORPUSCULAR HEMOGLOBIN 29.3 pg (27.0-33.0); MEAN CORPUSCULAR HGB CONC 32.5 g/dL (32.0-36.0); MEAN CORPUSCULAR VOLUME 90.2 fL (79-99); RED BLOOD CELL COUNT(AUTO) 3.68 MIL/uL (4.50-6.20); RED CELL DISTRIBUTION WIDTH 14.4 % (11.0-15.5); WHITE BLOOD COUNT (AUTO) 13.8 K/uL (4.8-10.8)
[2022-03-25 13:40] LABS: CREATININE 0.8 mg/dL (0.5-1.5); POTASSIUM 3.4 mmol/L (3.5-5.1)
[2022-03-25 15:10] VITALS: BP 98/62
[2022-03-25 21:20] VITALS: BP 123/68
[2022-03-25] MEDS: ZOLPIDEM TARTRATE 5 MG TAB PO SCH (21:52)
[2022-03-25] MEDS: ATORVASTATIN 40 MG TABLET PO SCH (21:52)
[2022-03-26] VITALS (8 sets, daily range): BP systolic 98–150; BP diastolic 57–96
[2022-03-26] MEDS: NAFCILLIN 2GM+ NS 100ML 100 ML IV SCH ×3 (00:12→07:52)
[2022-03-26] MEDS: INSULIN HUMULIN R 100 UNIT/ML 3ML SQ SCH ×5 (00:13→10:32)
[2022-03-26] MEDS: GENTAMICIN SULFATE 60 MG in 0.9%NACL 100ML 100 ML IV SCH ×2 (02:25→10:23)
[2022-03-26] MEDS: CHLORHEXIDINE GLUCONATE 473 ML MOUTHWASH MM SCH ×2 (02:27→07:48)
[2022-03-26 03:57] LABS: ABG BASE EXCESS 1.3 mmol/L (-2.0-3.0); ABG OXYGEN SATURATION 97.8 % (95.0-99.0); ABG PCO2 33 mmHg (35-48)
[2022-03-26] MEDS: LEVETIRACETAM 500 MG in 0.9%NACL 100ML 100 ML IV SCH ×3 (06:13→22:00)
[2022-03-26] MEDS: INSULIN GLARGINE 100 UNITS/ML 10 ML VIAL SQ SCH (07:00)
[2022-03-26] MEDS: PANTOPRAZOLE 40 MG/VIAL IVP SCH (07:52)
[2022-03-26] MEDS: TAMSULOSIN HCL 0.4 MG CAP.ER.24H PO SCH (07:53)
[2022-03-26] MEDS: THIAMINE HCL 100 MG/ML 2ML VIAL IVP SCH (07:53)
[2022-03-26 08:22] LABS: BASOPHILS % (AUTO) 0.2 % (0.0-5.0); EOSINOPHILS % (AUTO) 0.3 % (0.0-8.0); HEMATOCRIT 27.9 % (42-54); LYMPHOCYTES % (AUTO) 10.4 % (21.0-51.0); MEAN CORPUSCULAR HEMOGLOBIN 29.5 pg (27.0-33.0); MEAN CORPUSCULAR VOLUME 89.4 fL (79-99); MONOCYTES % (AUTO) 4.9 % (3.0-13.0); NEUTROPHILS % (AUTO) 83.4 % (40.0-77.0); NUCLEATED RED BLOOD CELLS 0.2 % (0.0-0.19); PLATELET COUNT (AUTO) 392 K/uL (130-400); RED BLOOD CELL COUNT(AUTO) 3.12 MIL/uL (4.50-6.20); RED CELL DISTRIBUTION WIDTH 14.4 % (11.0-15.5); WHITE BLOOD COUNT (AUTO) 13.1 K/uL (4.8-10.8)
[2022-03-26 08:41] LABS: ALBUMIN 1.1 g/dL (3.5-5.0); CREATININE 0.8 mg/dL (0.5-1.5); POTASSIUM 3.7 mmol/L (3.5-5.1)
[2022-03-26] MEDS ORDERED: 0.9%NACL 10ML VIAL IV SCH (09:00)
[2022-03-26] MEDS: METOPROLOL TARTRATE 25 MG TAB PO SCH (09:02)
[2022-03-26] MEDS ORDERED: FUROSEMIDE 20MG VIAL IV SCH (11:30)
[2022-03-26] MEDS ORDERED: HALOPERIDOL INJ 5 MG/ML VIAL IV PRN (12:00)
[2022-03-26] MEDS ORDERED: ACETAMINOPHEN 650 MG SUPPOSITORY RC PRN (12:00)
[2022-03-26] MEDS ORDERED: ONDANSETRON 4MG INJ IVP PRN (12:00)
[2022-03-26] MEDS ORDERED: ACETAMINOPHEN 325 MG TAB PO PRN (12:00)
[2022-03-26] MEDS: MORPHINE 2 MG SYG IVP PRN ×3 (15:54→21:39)
[2022-03-27] MEDS: MORPHINE 2 MG SYG IVP PRN ×5 (00:28→14:24)
[2022-03-27 03:19] VITALS: BP 128/78
[2022-03-27] MEDS: LORAZEPAM 2 MG/ML 1 ML VIAL IVP PRN ×3 (05:50→16:20)
[2022-03-27] MEDS: LEVETIRACETAM 500 MG in 0.9%NACL 100ML 100 ML IV SCH (05:57)
[2022-03-27] MEDS ORDERED: TAMSULOSIN HCL 0.4 MG CAP.ER.24H PO SCH (09:00)
[2022-03-27 15:10] VITALS: BP 115/55
== END 2022-03-27 16:24 | DRG 871 ==
LOC: EDH 14:39 → EDHIP 14:40 → 2BH 21:16 → 3AH 03-18 17:43
PROVIDERS: ADMIT Internal Medicine; ATTEND Internal Medicine
PROC: 05HY33Z Insertion of Infusion Device into Upper Vein, Percutaneous Approach (ICD-10-PCS; 2022-03-15)
PROC: B24BZZ4 Ultrasonography of Heart with Aorta, Transesophageal (ICD-10-PCS; principal; 2022-03-22)
PROC: 05HY33Z Insertion of Infusion Device into Upper Vein, Percutaneous Approach (ICD-10-PCS; 2022-03-25)
PROC: 5A09357 Assistance with Respiratory Ventilation, Less than 24 Consecutive Hours, Continuous Positive Airway Pressure (ICD-10-PCS; 2022-03-26)
PROC: 5A09357 Assistance with Respiratory Ventilation, Less than 24 Consecutive Hours, Continuous Positive Airway Pressure (ICD-10-PCS; 2022-03-27)
DX: A41.01 Sepsis due to Methicillin susceptible Staphylococcus aureus (principal); E11.10 Type 2 diabetes mellitus with ketoacidosis without coma; E43 Unspecified severe protein-calorie malnutrition; I21.A1 Myocardial infarction type 2; I33.0 Acute and subacute infective endocarditis; N17.9 Acute kidney failure, unspecified; I74.5 Embolism and thrombosis of iliac artery; E87.1 Hypo-osmolality and hyponatremia; G93.40 Encephalopathy, unspecified; I62.9 Nontraumatic intracranial hemorrhage, unspecified; E87.6 Hypokalemia; E86.1 Hypovolemia; A53.0 Latent syphilis, unspecified as early or late; D75.82 Heparin induced thrombocytopenia (HIT); Z20.822 Contact with and (suspected) exposure to COVID-19; Z68.20 Body mass index [BMI] 20.0-20.9, adult; I10 Essential (primary) hypertension; Z66 Do not resuscitate; Z74.01 Bed confinement status; D64.9 Anemia, unspecified; Z83.3 Family history of diabetes mellitus; E11.51 Type 2 diabetes mellitus with diabetic peripheral angiopathy without gangrene; Z91.19 Patient's noncompliance with other medical treatment and regimen
CPT/HCPCS: 36415; 36600; 70450; 70544; 70551; 71045; 80048; 80053; 80061; 80074; 80170; 80202; 80305; 81001; 82010; 82140; 82435; 82550; 82570; 82803; 82947; 82948; 83010; 83036; 83605; 83615; 83735; 83874; 83880; 83930; 83935; 84100; 84132; 84145; 84156; 84295; 84300; 84443; 84484; 85018; 85025; 85027; 85378; 85384; 85610; 85651; 85730; 86022; 86140; 86592; 86701; 86780; 87040; 87077; 87088; 87186; 87390; 87635; 87804; 92522; 92610; 93005; 93306; 93312; 93356; 93880; 93925; 93970; 93971; 94660; 97039; 99152; 99153; 99291; C1894; C9113; C9803; G0378; J0690; J0883; J1580; J1644; J1815; J1940; J1953; J2060; J2250; J2543; J3010; J3370; J3411; J3480; J3490; J7030; J7042; J7050; J7070; Q9967